=== PATIENT | male | born 2000 | race Hispanic/Latino ===

== ENCOUNTER 2022-09-22 15:48 | Inpatient (IN) | payer OTHER, BC ==
[~2022-09-22 15:48] MED LIST: Iopamidol-370 76% 500 ML 1 ML ONE
[2022-09-22] MEDS ORDERED: FENTANYL 50 MCG/ML 1 ML VIAL ONE ×2 (15:52→16:26)
[2022-09-22] MEDS ORDERED: Ondansetron PF 4 MG/2 ML Vial ONE ×2 (15:52→17:51)
[2022-09-22 16:16] LABS: Hemoglobin 16.1 g/dL (14.0-18.0); Mean Corpuscular Hemoglobin 27.1 pg (27.0-31.0); Mean Platelet Volume 9.4 fL (7.4-10.4); Platelet Count 270 thou/uL (130-400); RBC Distribution Width 13.3 % (11.5-14.5); Red Blood Cell (RBC) Count 5.94 mill/uL (4.70-6.10)
[2022-09-22 16:33] LABS: Band 19 % (5-11); Eosinophils 1 % (0-10); Lymphocytes 8 % (21-51); MDiff Complete? YES; Monocytes 4 % (0-10); Neutrophil 64 % (42-75); Platelet Morphology Comment Appears Adequate; RBC Morphology Normal; Reactive Lymphocytes 4 % (0-10)
[2022-09-22 16:37] LABS: INR-International Normal Ratio 1.1; Prothrombin Time 14.2 sec (12.0-14.7)
[2022-09-22 16:38] LABS: ALT (SGPT) 51 U/L (8-55); AST (SGOT) 53 U/L (5-34); Albumin 4.8 g/dL (3.5-5.0); Alcohol Less than 10 mg/dL (Less than 10); Alkaline Phosphatase 156 U/L (40-110); Anion Gap 15 mmol/L (10-20); BUN (Urea Nitrogen) 11 mg/dL (8.9-20.6); Calc. Creatinine Clearance 0 mL/min (70-130); Calcium 9.1 mg/dL (7.8-10.44); Carbon Dioxide 23 mmol/L (22-29); Chloride 109 mmol/L (98-107); Estimated GFR 91; Globulin 2.9 g/dL (2.4-3.5); Glucose 129 mg/dL (70-105); Potassium 3.7 mmol/L (3.5-5.1); Protein, Total 7.7 g/dL (6.0-8.3); Sodium 143 mmol/L (136-145)
[2022-09-22] MEDS ORDERED: Boostrix 0.5 ML (Tdap) VIAL (>/=7 yrs of age) ONE (17:03)
[2022-09-22] MEDS ORDERED: Piperacillin/Tazobactam 3.375 GM VIAL ONE (17:03)
[2022-09-22] MEDS ORDERED: fentaNYL PF 100 MCG/2 ML SYRINGE ONE ×2 (17:16→21:00)
[2022-09-22] MEDS ORDERED: Ondansetron PF 4 MG/2 ML Vial IVP PRN ×2 (17:20→17:26)
[2022-09-22] MEDS ORDERED: TETANUS, DIPHTHERIA TOX,ADULT (TDVAX) 0.5 ML VIAL IM ONE (17:20)
[2022-09-22] MEDS ORDERED: hydrALAZINE 20 MG/ML VIAL SLOW IVP PRN (17:20)
[2022-09-22] MEDS ORDERED: Naloxone HCl 0.4 mg/ml Vial IV PRN (17:26)
[2022-09-22] MEDS ORDERED: diphenhydrAMINE 25 MG CAP PO PRN (17:26)
[2022-09-22] MEDS ORDERED: Zolpidem Tartrate 5 MG TAB PO PRN (17:26)
[2022-09-22] MEDS ORDERED: diphenhydrAMINE 50 MG/ML VIAL IM PRN (17:26)
[2022-09-22] MEDS ORDERED: Promethazine HCl 25 MG/ML VIAL IM PRN ×2 (17:26→21:18)
[2022-09-22] MEDS ORDERED: HYDROmorphone 10 mg/100 ml CADD IVPB PRN (17:26)
[2022-09-22] MEDS ORDERED: Communication Order-Pharmacy FS SCH (17:30)
[2022-09-22] MEDS ORDERED: Morphine 4 MG/ML VIAL SLOW IVP PRN (17:32)
[2022-09-22] MEDS ORDERED: Phenylephrine 10 MG/ML VIAL ONE (17:36)
[2022-09-22] MEDS ORDERED: Rocuronium Bromide 10 MG/ML (10ML VIAL) ONE (17:51)
[2022-09-22] MEDS ORDERED: Dexamethasone 20 MG/5 ML VIAL ONE (17:51)
[2022-09-22] MEDS ORDERED: Ketorolac Tromethamine 30 MG/ML VIAL ONE (17:51)
[2022-09-22] MEDS ORDERED: PHENYLEPHRINE-NS 100 MCG/ML 10 ML SYRINGE ONE (17:51)
[2022-09-22] MEDS ORDERED: Succinylcholine 200 MG/10 ml SYRINGE FS ONE (17:51)
[2022-09-22] MEDS ORDERED: PROPOFOL 200 MG/20 ML VIAL ONE (17:51)
[2022-09-22] MEDS ORDERED: Glycopyrrolate 0.2 MG/ML 5 ML SYRINGE ONE (17:51)
[2022-09-22] MEDS ORDERED: NEOSTIGMINE 3 MG/3 ML SYR 3 MG/3 ML SYRINGE ONE (17:51)
[2022-09-22] MEDS ORDERED: Acetaminophen 500 MG TAB PO SCH (18:00)
[2022-09-22] MEDS ORDERED: Albumin 5% 500 ML ONE (18:47)
[2022-09-22] MEDS ORDERED: HYDROmorphone 2 MG/ML VIAL SLOW IVP PRN (21:18)
[2022-09-22] MEDS ORDERED: Promethazine HCl 25 MG/ML VIAL IVPB PRN (21:18)
[2022-09-22] MEDS ORDERED: Meperidine HCl/PF 25 MG/ML VIAL SLOW IVP PRN (21:18)
[2022-09-22] MEDS ORDERED: Morphine Sulfate 2 MG/ML SYRINGE SLOW IVP PRN (21:18)
[2022-09-22] MEDS ORDERED: Ondansetron HCl/PF 4 MG/2 ML Vial IVP PRN (21:18)
[2022-09-22] MEDS ORDERED: Ketorolac Tromethamine 30 MG/ML VIAL IVP PRN (21:18)
[2022-09-22] MEDS ORDERED: PACU-Morphine 4MG/ML VIAL SLOW IVP PRN (21:18)
[2022-09-22] MEDS ORDERED: Fentanyl 100 MCG/2 ML VIAL ONE (21:31)
[2022-09-22] MEDS: Sodium Chloride 0.9% 1,000 ML IV SCH (23:30)
[2022-09-22] MEDS: Famotidine/PF 20 mg/2ml Vial SLOW IVP SCH (23:40)
[2022-09-22] MEDS: Piperacillin/Tazobactam 3.375 GM in Sodium Chloride 0.9% 100 ML IVPB SCH (23:40)
[2022-09-23] MEDS: Sodium Chloride 0.9% 1,000 ML IV SCH ×3 (01:50→21:03)
[2022-09-23 05:06] VITALS: BMI 26.4
[2022-09-23 05:40] LABS: SARS-CoV-2 NAA Rapid Test Not Detected (NotDetected)
[2022-09-23] MEDS: Piperacillin/Tazobactam 3.375 GM in Sodium Chloride 0.9% 100 ML IVPB SCH ×3 (05:45→22:00)
[2022-09-23 05:56] LABS: INR-International Normal Ratio 1.2; PTT 31.3 sec (22.9-36.1); Prothrombin Time 15.6 sec (12.0-14.7)
[2022-09-23 06:11] LABS: Phosphorus 3.3 mg/dL (2.3-4.7)
[2022-09-23 06:13] LABS: Anion Gap 10 mmol/L (10-20); BUN (Urea Nitrogen) 11 mg/dL (8.9-20.6); Calc. Creatinine Clearance 145 mL/min (70-130); Calcium 8.2 mg/dL (7.8-10.44); Carbon Dioxide 22 mmol/L (22-29); Chloride 110 mmol/L (98-107); Estimated GFR 122; Glucose 140 mg/dL (70-105); Magnesium 1.5 mg/dL (1.6-2.6); Potassium 4.1 mmol/L (3.5-5.1); Sodium 138 mmol/L (136-145)
[2022-09-23 06:43] LABS: Band 40 % (5-11); Lymphocytes 4 % (21-51); MDiff Complete? YES; Mean Corpuscular HGB CONC 32.2 g/dL (32.0-36.0); Mean Corpuscular Hemoglobin 26.5 pg (27.0-31.0); Mean Corpuscular Volume 82.4 fl (78.0-98.0); Mean Platelet Volume 9.1 fL (7.4-10.4); Monocytes 11 % (0-10); Neutrophil 45 % (42-75); Platelet Count 161 thou/uL (130-400); RBC Distribution Width 13.1 % (11.5-14.5); Red Blood Cell (RBC) Count 4.54 mill/uL (4.70-6.10); White Blood Cell (WBC) Count 11.9 thou/uL (4.8-10.8)
[2022-09-23] MEDS ORDERED: Magnesium Sulfate In Water 4 GM in Premix Bag 1 BAG IVPB SCH (07:30)
[2022-09-23] MEDS ORDERED: HYDROmorphone 10 mg/100 ml CADD IVPB PRN (11:31)
[2022-09-23] MEDS ORDERED: Pantoprazole 40 MG VIAL IVP SCH (12:00)
[2022-09-23] MEDS ORDERED: Ketorolac Tromethamine 30 MG/ML VIAL IVP SCH (12:00)
[2022-09-23] MEDS: Famotidine/PF 20 mg/2ml Vial SLOW IVP SCH ×2 (13:24→21:03)
[2022-09-23] MEDS: Pantoprazole 40 MG VIAL IVP SCH (13:27)
[2022-09-23] MEDS ORDERED: FLU VACC QS2022-23(6MOS UP)/PF 60 MCG/0.5 ML SYRINGE IM ONE (14:00)
[2022-09-23] MEDS ORDERED: Ketorolac Tromethamine 30 MG/ML VIAL ONE (16:28)
[2022-09-23] MEDS: HYDROmorphone 10 mg/100 ml CADD IVPB PRN (16:38)
[2022-09-23] MEDS: diphenhydrAMINE 50 MG/ML VIAL IVP PRN (20:54)
[2022-09-23] MEDS: Ketorolac Tromethamine 30 MG/ML VIAL IVP SCH (21:03)
[2022-09-24] MEDS: diphenhydrAMINE 50 MG/ML VIAL IVP PRN (01:05)
[2022-09-24] MEDS: Sodium Chloride 0.9% 1,000 ML IV SCH ×4 (02:40→20:31)
[2022-09-24 05:58] LABS: #Eosinphils 0.1 thou/uL (0.0-0.7); #Lymphocytes 1.1 thou/uL (1.20-3.40); #Monocytes 0.7 thou/uL (0.11-0.59); #Neutrophils 7.5 thou/uL (1.40-6.50); %Basophils 0.2 % (0.0-1.0); %Eosinophils 0.8 % (0.0-10.0); %Lymphocytes 11.9 % (21.0-51.0); %Monocytes 7.6 % (0.0-10.0); %Neutrophils 79.4 % (42.0-75.0); Hemoglobin 11.1 g/dL (14.0-18.0); Mean Corpuscular HGB CONC 31.7 g/dL (32.0-36.0); Mean Corpuscular Hemoglobin 26.4 pg (27.0-31.0); Mean Corpuscular Volume 83.1 fl (78.0-98.0); Mean Platelet Volume 9.5 fL (7.4-10.4); Platelet Count 134 thou/uL (130-400); RBC Distribution Width 13.2 % (11.5-14.5); White Blood Cell (WBC) Count 9.4 thou/uL (4.8-10.8)
[2022-09-24] MEDS: Piperacillin/Tazobactam 3.375 GM in Sodium Chloride 0.9% 100 ML IVPB SCH ×3 (06:03→20:36)
[2022-09-24] MEDS: Ketorolac Tromethamine 30 MG/ML VIAL IVP SCH ×3 (06:03→20:33)
[2022-09-24 07:13] LABS: Anion Gap 11 mmol/L (10-20); BUN (Urea Nitrogen) 13 mg/dL (8.9-20.6); Calc. Creatinine Clearance 142 mL/min (70-130); Calcium 8.5 mg/dL (7.8-10.44); Carbon Dioxide 22 mmol/L (22-29); Chloride 109 mmol/L (98-107); Estimated GFR 119; Glucose 97 mg/dL (70-105); Magnesium 2.2 mg/dL (1.6-2.6); Phosphorus 2.1 mg/dL (2.3-4.7); Potassium 4.4 mmol/L (3.5-5.1); Sodium 138 mmol/L (136-145)
[2022-09-24] MEDS: Famotidine/PF 20 mg/2ml Vial SLOW IVP SCH ×2 (08:57→20:33)
[2022-09-24] MEDS: Pantoprazole 40 MG VIAL IVP SCH (08:58)
[2022-09-24] MEDS ORDERED: Sodium Phosphate 30 MMOL in Sodium Chloride 0.9% 250 ML 250 ML IVPB SCH (09:00)
[2022-09-24] MEDS ORDERED: FLU VACC QS2022-23(6MOS UP)/PF 60 MCG/0.5 ML SYRINGE IM ONE (09:00)
[2022-09-24] MEDS: Acetaminophen 500 MG TAB PO SCH ×3 (09:15→20:32)
[2022-09-24] MEDS: HYDROmorphone 10 mg/100 ml CADD IVPB PRN (10:37)
[2022-09-25] MEDS: Sodium Chloride 0.9% 1,000 ML IV SCH (02:30)
[2022-09-25] MEDS: Acetaminophen 500 MG TAB PO SCH ×4 (04:27→21:22)
[2022-09-25] MEDS: Ketorolac Tromethamine 30 MG/ML VIAL IVP SCH ×3 (05:55→21:21)
[2022-09-25] MEDS: Piperacillin/Tazobactam 3.375 GM in Sodium Chloride 0.9% 100 ML IVPB SCH ×3 (05:55→21:22)
[2022-09-25 06:10] LABS: #Basophils 0.1 thou/uL (0.0-0.2); #Eosinphils 0.1 thou/uL (0.0-0.7); #Lymphocytes 0.7 thou/uL (1.20-3.40); #Monocytes 0.5 thou/uL (0.11-0.59); %Basophils 1.2 % (0.0-1.0); %Eosinophils 1.6 % (0.0-10.0); %Lymphocytes 8.5 % (21.0-51.0); %Monocytes 5.7 % (0.0-10.0); Hemoglobin 10.4 g/dL (14.0-18.0); Mean Corpuscular HGB CONC 32.2 g/dL (32.0-36.0); Mean Corpuscular Hemoglobin 26.6 pg (27.0-31.0); Mean Corpuscular Volume 82.7 fl (78.0-98.0); Mean Platelet Volume 9.1 fL (7.4-10.4); Platelet Count 139 thou/uL (130-400); RBC Distribution Width 12.9 % (11.5-14.5); Red Blood Cell (RBC) Count 3.89 mill/uL (4.70-6.10); White Blood Cell (WBC) Count 8.4 thou/uL (4.8-10.8)
[2022-09-25 06:29] LABS: Anion Gap 12 mmol/L (10-20); BUN (Urea Nitrogen) 8 mg/dL (8.9-20.6); Calc. Creatinine Clearance 182 mL/min (70-130); Calcium 8.6 mg/dL (7.8-10.44); Carbon Dioxide 23 mmol/L (22-29); Chloride 108 mmol/L (98-107); Estimated GFR 131; Glucose 97 mg/dL (70-105); Magnesium 1.8 mg/dL (1.6-2.6); Potassium 3.6 mmol/L (3.5-5.1); Sodium 139 mmol/L (136-145)
[2022-09-25 06:35] LABS: Phosphorus 1.9 mg/dL (2.3-4.7)
[2022-09-25] MEDS ORDERED: Magnesium 2 GM/50 ML(in water) 2 GM in Premix Bag 1 BAG IVPB SCH (07:00)
[2022-09-25] MEDS ORDERED: Potassium Chloride 10 MEQ in Dextrose 5%-Lactated Ringers 1,000 ML IV SCH (07:00)
[2022-09-25] MEDS: HYDROmorphone 10 mg/100 ml CADD IVPB PRN ×2 (07:06→18:17)
[2022-09-25] MEDS ORDERED: Potassium Phosphate 30 MMOL in Sodium Chloride 0.9% 250 ML 250 ML IVPB SCH (07:30)
[2022-09-25] MEDS: Pantoprazole 40 MG VIAL IVP SCH (08:38)
[2022-09-25] MEDS: Potassium Chloride 10 MEQ in Dextrose 5%-Lactated Ringers 1,000 ML IV SCH ×3 (13:14→22:41)
[2022-09-25] MEDS: diphenhydrAMINE 50 MG/ML VIAL IVP PRN (21:21)
[2022-09-26] MEDS: diphenhydrAMINE 50 MG/ML VIAL IVP PRN ×2 (00:59→22:13)
[2022-09-26] MEDS: Acetaminophen 500 MG TAB PO SCH ×4 (02:48→20:05)
[2022-09-26 06:11] LABS: #Eosinphils 0.3 thou/uL (0.0-0.7); #Lymphocytes 1.3 thou/uL (1.20-3.40); #Monocytes 0.6 thou/uL (0.11-0.59); #Neutrophils 4.1 thou/uL (1.40-6.50); %Basophils 0.1 % (0.0-1.0); %Eosinophils 4.7 % (0.0-10.0); %Lymphocytes 21.2 % (21.0-51.0); %Monocytes 8.9 % (0.0-10.0); %Neutrophils 65.2 % (42.0-75.0); Hemoglobin 10.1 g/dL (14.0-18.0); Mean Corpuscular HGB CONC 31.8 g/dL (32.0-36.0); Mean Corpuscular Hemoglobin 26.2 pg (27.0-31.0); Mean Corpuscular Volume 82.3 fl (78.0-98.0); Mean Platelet Volume 10.1 fL (7.4-10.4); Platelet Count 112 thou/uL (130-400); RBC Distribution Width 12.8 % (11.5-14.5); Red Blood Cell (RBC) Count 3.86 mill/uL (4.70-6.10); White Blood Cell (WBC) Count 6.3 thou/uL (4.8-10.8)
[2022-09-26] MEDS: Piperacillin/Tazobactam 3.375 GM in Sodium Chloride 0.9% 100 ML IVPB SCH ×3 (06:19→22:11)
[2022-09-26] MEDS: Ketorolac Tromethamine 30 MG/ML VIAL IVP SCH (06:19)
[2022-09-26 06:29] LABS: Anion Gap 12 mmol/L (10-20); BUN (Urea Nitrogen) 4 mg/dL (8.9-20.6); Calc. Creatinine Clearance 187 mL/min (70-130); Calcium 8.8 mg/dL (7.8-10.44); Carbon Dioxide 20 mmol/L (22-29); Chloride 109 mmol/L (98-107); Estimated GFR 132; Glucose 100 mg/dL (70-105); Magnesium 1.6 mg/dL (1.6-2.6); Phosphorus 3.4 mg/dL (2.3-4.7); Potassium 3.9 mmol/L (3.5-5.1); Sodium 137 mmol/L (136-145)
[2022-09-26] MEDS: Potassium Chloride 10 MEQ in Dextrose 5%-Lactated Ringers 1,000 ML IV SCH (06:56)
[2022-09-26] MEDS ORDERED: Magnesium Sulfate In Water 4 GM in Premix Bag 1 BAG IVPB SCH (08:00)
[2022-09-26] MEDS: Enoxaparin Sodium 40 MG/0.4 ML SYRINGE SC SCH (08:51)
[2022-09-26] MEDS: Polyethylene Glycol 3350 17 GM Packet PO SCH (08:52)
[2022-09-26] MEDS: Senokot S 8.6-50 MG TAB PO SCH ×2 (08:52→20:05)
[2022-09-26] MEDS ORDERED: Ketorolac Tromethamine 30 MG/ML VIAL IVP PRN (10:37)
[2022-09-26] MEDS: HYDROmorphone 10 mg/100 ml CADD IVPB PRN (18:07)
[2022-09-26] MEDS: traMADol HCl 50 MG TAB PO SCH (18:08)
[2022-09-26] MEDS: traMADol HCl 50 MG TAB PO PRN (18:09)
[2022-09-27] MEDS: traMADol HCl 50 MG TAB PO SCH ×4 (00:08→18:12)
[2022-09-27] MEDS: Acetaminophen 500 MG TAB PO SCH ×4 (03:08→19:37)
[2022-09-27 05:46] LABS: #Eosinphils 0.4 thou/uL (0.0-0.7); #Lymphocytes 1.1 thou/uL (1.20-3.40); #Monocytes 0.6 thou/uL (0.11-0.59); #Neutrophils 4.4 thou/uL (1.40-6.50); %Basophils 0.3 % (0.0-1.0); %Eosinophils 5.5 % (0.0-10.0); %Lymphocytes 17.7 % (21.0-51.0); %Monocytes 8.9 % (0.0-10.0); %Neutrophils 67.6 % (42.0-75.0); Hemoglobin 9.8 g/dL (14.0-18.0); Mean Corpuscular HGB CONC 31.2 g/dL (32.0-36.0); Mean Corpuscular Hemoglobin 25.4 pg (27.0-31.0); Mean Corpuscular Volume 81.5 fl (78.0-98.0); Mean Platelet Volume 8.3 fL (7.4-10.4); Platelet Count 177 thou/uL (130-400); RBC Distribution Width 13.1 % (11.5-14.5); Red Blood Cell (RBC) Count 3.86 mill/uL (4.70-6.10); White Blood Cell (WBC) Count 6.4 thou/uL (4.8-10.8)
[2022-09-27] MEDS: Piperacillin/Tazobactam 3.375 GM in Sodium Chloride 0.9% 100 ML IVPB SCH ×3 (06:01→21:51)
[2022-09-27 06:33] LABS: Anion Gap 10 mmol/L (10-20); BUN (Urea Nitrogen) 5 mg/dL (8.9-20.6); Calc. Creatinine Clearance 182 mL/min (70-130); Calcium 8.9 mg/dL (7.8-10.44); Carbon Dioxide 27 mmol/L (22-29); Chloride 105 mmol/L (98-107); Estimated GFR 131; Glucose 94 mg/dL (70-105); Magnesium 1.8 mg/dL (1.6-2.6); Phosphorus 4.4 mg/dL (2.3-4.7); Potassium 3.7 mmol/L (3.5-5.1); Sodium 138 mmol/L (136-145)
[2022-09-27] MEDS: Enoxaparin Sodium 40 MG/0.4 ML SYRINGE SC SCH (09:07)
[2022-09-27] MEDS: Pantoprazole 40 MG VIAL IVP SCH (09:07)
[2022-09-27] MEDS: Senokot S 8.6-50 MG TAB PO SCH ×2 (09:07→19:37)
[2022-09-27] MEDS: Polyethylene Glycol 3350 17 GM Packet PO SCH (09:07)
[2022-09-28] MEDS: traMADol HCl 50 MG TAB PO SCH ×5 (00:16→23:42)
[2022-09-28] MEDS: traMADol HCl 50 MG TAB PO PRN ×2 (01:31→21:28)
[2022-09-28] MEDS: Cyclobenzaprine 10 MG TAB PO PRN ×2 (01:31→20:24)
[2022-09-28] MEDS: Ibuprofen 200 MG TAB PO PRN ×2 (01:31→21:27)
[2022-09-28] MEDS: Acetaminophen 500 MG TAB PO SCH ×4 (03:33→20:24)
[2022-09-28 05:58] LABS: #Eosinphils 0.3 thou/uL (0.0-0.7); #Lymphocytes 1.2 thou/uL (1.20-3.40); #Monocytes 0.7 thou/uL (0.11-0.59); #Neutrophils 6.6 thou/uL (1.40-6.50); %Eosinophils 3.2 % (0.0-10.0); %Lymphocytes 14.1 % (21.0-51.0); %Monocytes 7.4 % (0.0-10.0); %Neutrophils 75.3 % (42.0-75.0); Hemoglobin 11.3 g/dL (14.0-18.0); Mean Corpuscular HGB CONC 31.8 g/dL (32.0-36.0); Mean Corpuscular Hemoglobin 25.7 pg (27.0-31.0); Mean Corpuscular Volume 80.8 fl (78.0-98.0); Mean Platelet Volume 8.4 fL (7.4-10.4); Platelet Count 243 thou/uL (130-400); RBC Distribution Width 13.4 % (11.5-14.5); Red Blood Cell (RBC) Count 4.38 mill/uL (4.70-6.10); White Blood Cell (WBC) Count 8.8 thou/uL (4.8-10.8)
[2022-09-28 06:21] LABS: Anion Gap 11 mmol/L (10-20); BUN (Urea Nitrogen) 10 mg/dL (8.9-20.6); Calc. Creatinine Clearance 166 mL/min (70-130); Calcium 9.6 mg/dL (7.8-10.44); Carbon Dioxide 25 mmol/L (22-29); Chloride 105 mmol/L (98-107); Estimated GFR 127; Glucose 96 mg/dL (70-105); Phosphorus 4.2 mg/dL (2.3-4.7); Potassium 4.3 mmol/L (3.5-5.1); Sodium 137 mmol/L (136-145)
[2022-09-28] MEDS: Senokot S 8.6-50 MG TAB PO SCH ×2 (09:15→20:24)
[2022-09-28] MEDS: Enoxaparin Sodium 40 MG/0.4 ML SYRINGE SC SCH (09:15)
[2022-09-28] MEDS: Polyethylene Glycol 3350 17 GM Packet PO SCH (09:15)
[2022-09-28] MEDS: Pantoprazole 40 MG VIAL IVP SCH (09:16)
[2022-09-29] MEDS: Acetaminophen 500 MG TAB PO SCH ×5 (02:47→21:00)
[2022-09-29] MEDS: Cyclobenzaprine 10 MG TAB PO PRN (02:47)
[2022-09-29] MEDS: traMADol HCl 50 MG TAB PO PRN (04:25)
[2022-09-29] MEDS: Ibuprofen 200 MG TAB PO PRN (04:25)
[2022-09-29] MEDS: traMADol HCl 50 MG TAB PO SCH (05:41)
[2022-09-29] MEDS ORDERED: Morphine 4 MG/ML VIAL ONE (06:35)
[2022-09-29] MEDS ORDERED: Morphine 4 MG/ML VIAL SLOW IVP SCH ×2 (07:00→09:15)
[2022-09-29 07:58] LABS: Anion Gap 17 mmol/L (10-20); BUN (Urea Nitrogen) 11 mg/dL (8.9-20.6); Calc. Creatinine Clearance 154 mL/min (70-130); Calcium 9.3 mg/dL (7.8-10.44); Carbon Dioxide 19 mmol/L (22-29); Chloride 102 mmol/L (98-107); Estimated GFR 124; Glucose 122 mg/dL (70-105); Magnesium 1.5 mg/dL (1.6-2.6); Phosphorus 4.3 mg/dL (2.3-4.7); Potassium 4.4 mmol/L (3.5-5.1); Sodium 134 mmol/L (136-145)
[2022-09-29 08:09] LABS: Hemoglobin 12.6 g/dL (14.0-18.0); Mean Corpuscular HGB CONC 31.4 g/dL (32.0-36.0); Mean Corpuscular Hemoglobin 24.9 pg (27.0-31.0); Mean Corpuscular Volume 79.4 fl (78.0-98.0); Mean Platelet Volume 8.7 fL (7.4-10.4); Platelet Count 293 thou/uL (130-400); RBC Distribution Width 13.7 % (11.5-14.5); Red Blood Cell (RBC) Count 5.06 mill/uL (4.70-6.10); White Blood Cell (WBC) Count 17.7 thou/uL (4.8-10.8)
[2022-09-29] MEDS ORDERED: fentaNYL PF 100 MCG/2 ML SYRINGE ONE (08:14)
[2022-09-29] MEDS ORDERED: Ketamine 50 MG/ML (10ML VIAL) ONE (08:14)
[2022-09-29] MEDS ORDERED: Midazolam HCl 2 mg/2 ml Vial ONE ×2 (08:14)
[2022-09-29] MEDS ORDERED: Piperacillin/Tazobactam 3.375 GM in Sodium Chloride 0.9% 100 ML IVPB SCH ×2 (08:15→12:00)
[2022-09-29] MEDS ORDERED: Phenylephrine 10 MG/ML VIAL ONE (08:15)
[2022-09-29] MEDS ORDERED: Albumin 5% 500 ML ONE (08:15)
[2022-09-29] MEDS ORDERED: SUGAMMADEX SODIUM 200 MG/2 ML VIAL ONE (08:15)
[2022-09-29] MEDS ORDERED: HYDROmorphone 0.5 MG/0.5 ML SYRINGE ONE ×2 (08:16→11:34)
[2022-09-29] MEDS ORDERED: Morphine 4 MG/ML VIAL SLOW IVP PRN (08:22)
[2022-09-29] MEDS ORDERED: Sodium Chloride 0.9% 1,000 ML IV SCH (08:30)
[2022-09-29] MEDS ORDERED: Ketorolac Tromethamine 30 MG/ML VIAL IVP SCH (08:30)
[2022-09-29 08:35] LABS: Band 25 % (5-11); Lymphocytes 9 % (21-51); MDiff Complete? YES; Monocytes 9 % (0-10); Neutrophil 57 % (42-75); Ovalocytes SLIGHT = 2-5 cells (100X) (0-1/hpf); Platelet Morphology Comment Appears Adequate; Polychromasia SLIGHT = 2-3 cells (100X) (0-2/hpf)
[2022-09-29] MEDS ORDERED: Ketorolac Tromethamine 30 MG/ML VIAL ONE (08:44)
[2022-09-29] MEDS ORDERED: NEOSTIGMINE 3 MG/3 ML SYR 3 MG/3 ML SYRINGE ONE (09:09)
[2022-09-29] MEDS ORDERED: Rocuronium Bromide 10 MG/ML (10ML VIAL) ONE (09:09)
[2022-09-29] MEDS ORDERED: Glycopyrrolate 0.2 MG/ML 5 ML SYRINGE ONE (09:09)
[2022-09-29] MEDS ORDERED: PROPOFOL 200 MG/20 ML VIAL ONE (09:09)
[2022-09-29] MEDS ORDERED: Ondansetron PF 4 MG/2 ML Vial ONE (09:09)
[2022-09-29] MEDS ORDERED: PHENYLEPHRINE-NS 100 MCG/ML 10 ML SYRINGE ONE (09:09)
[2022-09-29] MEDS ORDERED: Succinylcholine 200 MG/10 ml SYRINGE FS ONE (09:09)
[2022-09-29] MEDS: Pantoprazole 40 MG VIAL IVP SCH (09:34)
[2022-09-29] MEDS: Enoxaparin Sodium 40 MG/0.4 ML SYRINGE SC SCH (09:34)
[2022-09-29] MEDS ORDERED: HYDROmorphone 2 MG/ML VIAL SLOW IVP PRN (11:11)
[2022-09-29] MEDS ORDERED: Promethazine HCl 25 MG/ML VIAL IM PRN ×2 (11:11→11:20)
[2022-09-29] MEDS ORDERED: Morphine Sulfate 2 MG/ML SYRINGE SLOW IVP PRN (11:11)
[2022-09-29] MEDS ORDERED: Promethazine HCl 25 MG/ML VIAL IVPB PRN (11:11)
[2022-09-29] MEDS ORDERED: Meperidine HCl/PF 25 MG/ML VIAL SLOW IVP PRN (11:11)
[2022-09-29] MEDS ORDERED: Ondansetron HCl/PF 4 MG/2 ML Vial IVP PRN (11:11)
[2022-09-29] MEDS ORDERED: diphenhydrAMINE 50 MG/ML VIAL IM PRN (11:20)
[2022-09-29] MEDS ORDERED: Zolpidem Tartrate 5 MG TAB PO PRN ×2 (11:20→13:00)
[2022-09-29] MEDS ORDERED: Ondansetron PF 4 MG/2 ML Vial IVP PRN (11:20)
[2022-09-29] MEDS ORDERED: HYDROmorphone 10 mg/100 ml CADD IVPB PRN (11:20)
[2022-09-29] MEDS ORDERED: Naloxone HCl 0.4 mg/ml Vial IV PRN ×2 (11:20→13:00)
[2022-09-29] MEDS ORDERED: diphenhydrAMINE 50 MG/ML VIAL IVP PRN (11:20)
[2022-09-29] MEDS ORDERED: diphenhydrAMINE 25 MG CAP PO PRN ×2 (11:20→13:00)
[2022-09-29] MEDS ORDERED: Communication Order-Pharmacy FS SCH (11:30)
[2022-09-29] MEDS ORDERED: FENTANYL 50 MCG/ML 1 ML VIAL ONE (11:48)
[2022-09-29] MEDS ORDERED: diphenhydrAMINE 50 MG/ML VIAL IM/IV PRN (13:00)
[2022-09-29] MEDS: Ketorolac Tromethamine 30 MG/ML VIAL IVP SCH ×2 (13:53→18:05)
[2022-09-29] MEDS: Sodium Chloride 0.9% 1,000 ML IV SCH ×2 (13:54→15:20)
[2022-09-29] MEDS: Piperacillin/Tazobactam 3.375 GM in Sodium Chloride 0.9% 100 ML IVPB SCH ×2 (14:16→21:01)
[2022-09-29] MEDS: Ondansetron PF 4 MG/2 ML Vial IVP PRN (18:41)
[2022-09-29] MEDS: Promethazine HCl 25 MG/ML VIAL IM PRN (20:21)
[2022-09-29] MEDS ORDERED: Piperacillin/Tazobactam 3.375 GM VIAL ONE (20:54)
[2022-09-30] MEDS: Ketorolac Tromethamine 30 MG/ML VIAL IVP SCH ×4 (00:01→16:53)
[2022-09-30] MEDS: Sodium Chloride 0.9% 1,000 ML IV SCH ×4 (00:02→17:16)
[2022-09-30] MEDS: Promethazine HCl 25 MG/ML VIAL IM PRN ×2 (00:07→17:45)
[2022-09-30] MEDS: Acetaminophen 500 MG TAB PO SCH ×4 (02:35→20:51)
[2022-09-30] MEDS: Piperacillin/Tazobactam 3.375 GM in Sodium Chloride 0.9% 100 ML IVPB SCH ×3 (05:06→20:50)
[2022-09-30 05:43] LABS: #Eosinphils 0.1 thou/uL (0.0-0.7); #Lymphocytes 0.8 thou/uL (1.20-3.40); #Monocytes 0.7 thou/uL (0.11-0.59); #Neutrophils 9.5 thou/uL (1.40-6.50); %Basophils 0.1 % (0.0-1.0); %Eosinophils 1.2 % (0.0-10.0); %Lymphocytes 7.4 % (21.0-51.0); %Monocytes 6.6 % (0.0-10.0); %Neutrophils 84.7 % (42.0-75.0); Hemoglobin 10.3 g/dL (14.0-18.0); Mean Corpuscular HGB CONC 31.6 g/dL (32.0-36.0); Mean Corpuscular Hemoglobin 25.5 pg (27.0-31.0); Mean Corpuscular Volume 80.7 fl (78.0-98.0); Mean Platelet Volume 8.5 fL (7.4-10.4); Platelet Count 287 thou/uL (130-400); RBC Distribution Width 13.7 % (11.5-14.5); Red Blood Cell (RBC) Count 4.06 mill/uL (4.70-6.10); White Blood Cell (WBC) Count 11.2 thou/uL (4.8-10.8)
[2022-09-30 05:59] LABS: ALT (SGPT) 22 U/L (8-55); AST (SGOT) 30 U/L (5-34); Alkaline Phosphatase 63 U/L (40-110); Anion Gap 10 mmol/L (10-20); BUN (Urea Nitrogen) 17 mg/dL (8.9-20.6); Bilirubin, Total 1.4 mg/dL (0.2-1.2); Calc. Creatinine Clearance 147 mL/min (70-130); Calcium 8.2 mg/dL (7.8-10.44); Carbon Dioxide 24 mmol/L (22-29); Chloride 103 mmol/L (98-107); Estimated GFR 123; Globulin 2.3 g/dL (2.4-3.5); Glucose 96 mg/dL (70-105); Potassium 4.1 mmol/L (3.5-5.1); Protein, Total 5.3 g/dL (6.0-8.3); Sodium 133 mmol/L (136-145)
[2022-09-30] MEDS: Ondansetron PF 4 MG/2 ML Vial IVP PRN (06:04)
[2022-09-30] MEDS: Fentanyl CADD 100 ML IVPB SCH (06:05)
[2022-09-30] MEDS ORDERED: Magnesium 2 GM/50 ML(in water) 4 GM in Premix Bag 1 BAG IVPB SCH (06:30)
[2022-09-30] MEDS ORDERED: Sodium Chloride 0.9% 1,000 ML IV SCH (06:45)
[2022-09-30] MEDS ORDERED: Morphine 4 MG/ML VIAL SLOW IVP SCH (07:00)
[2022-09-30] MEDS ORDERED: Ketorolac Tromethamine 30 MG/ML VIAL IVP SCH (07:00)
[2022-09-30] MEDS: Enoxaparin Sodium 40 MG/0.4 ML SYRINGE SC SCH (09:19)
[2022-09-30] MEDS: Pantoprazole 40 MG VIAL IVP SCH (09:20)
[2022-09-30] MEDS: Albumin 25% 25 GM/100 ML BOT IVPB SCH ×3 (10:06→20:49)
[2022-09-30 18:52] LABS: #Eosinphils 0.1 thou/uL (0.0-0.7); #Lymphocytes 0.7 thou/uL (1.20-3.40); #Monocytes 0.6 thou/uL (0.11-0.59); #Neutrophils 7.6 thou/uL (1.40-6.50); %Basophils 0.1 % (0.0-1.0); %Eosinophils 1.2 % (0.0-10.0); %Lymphocytes 8.2 % (21.0-51.0); %Monocytes 6.1 % (0.0-10.0); %Neutrophils 84.4 % (42.0-75.0); Hemoglobin 9.3 g/dL (14.0-18.0); Mean Corpuscular HGB CONC 32.2 g/dL (32.0-36.0); Mean Corpuscular Hemoglobin 26.4 pg (27.0-31.0); Mean Corpuscular Volume 81.8 fl (78.0-98.0); Mean Platelet Volume 8.4 fL (7.4-10.4); Platelet Count 284 thou/uL (130-400); RBC Distribution Width 13.5 % (11.5-14.5); Red Blood Cell (RBC) Count 3.54 mill/uL (4.70-6.10)
[2022-09-30 20:03] LABS: ALT (SGPT) 22 U/L (8-55); AST (SGOT) 41 U/L (5-34); Albumin 3.3 g/dL (3.5-5.0); Alkaline Phosphatase 61 U/L (40-110); Anion Gap 10 mmol/L (10-20); BUN (Urea Nitrogen) 11 mg/dL (8.9-20.6); Bilirubin, Total 1.4 mg/dL (0.2-1.2); Calc. Creatinine Clearance 166 mL/min (70-130); Calcium 8.5 mg/dL (7.8-10.44); Carbon Dioxide 23 mmol/L (22-29); Chloride 106 mmol/L (98-107); Estimated GFR 127; Globulin 2.4 g/dL (2.4-3.5); Glucose 86 mg/dL (70-105); Magnesium 2.2 mg/dL (1.6-2.6); Phosphorus 2.3 mg/dL (2.3-4.7); Potassium 4.2 mmol/L (3.5-5.1); Protein, Total 5.7 g/dL (6.0-8.3); Sodium 135 mmol/L (136-145)
[2022-09-30] MEDS: Senokot S 8.6-50 MG TAB PO SCH (20:51)
[2022-10-01] MEDS: Sodium Chloride 0.9% 1,000 ML IV SCH ×2 (03:05→09:14)
[2022-10-01] MEDS: Albumin 25% 25 GM/100 ML BOT IVPB SCH ×3 (03:30→17:33)
[2022-10-01] MEDS: Acetaminophen 500 MG TAB PO SCH ×4 (03:30→21:16)
[2022-10-01] MEDS: Ketorolac Tromethamine 30 MG/ML VIAL IVP SCH ×4 (05:37→17:33)
[2022-10-01] MEDS: Piperacillin/Tazobactam 3.375 GM in Sodium Chloride 0.9% 100 ML IVPB SCH ×3 (05:39→21:16)
[2022-10-01 07:13] LABS: #Eosinphils 0.1 thou/uL (0.0-0.7); #Lymphocytes 0.8 thou/uL (1.20-3.40); #Monocytes 0.6 thou/uL (0.11-0.59); #Neutrophils 5.2 thou/uL (1.40-6.50); %Basophils 0.2 % (0.0-1.0); %Eosinophils 1.3 % (0.0-10.0); %Neutrophils 77.5 % (42.0-75.0); Hemoglobin 8.1 g/dL (14.0-18.0); Mean Corpuscular HGB CONC 32.2 g/dL (32.0-36.0); Mean Corpuscular Hemoglobin 26.3 pg (27.0-31.0); Mean Corpuscular Volume 81.7 fl (78.0-98.0); Mean Platelet Volume 8.3 fL (7.4-10.4); Platelet Count 300 thou/uL (130-400); RBC Distribution Width 13.4 % (11.5-14.5); White Blood Cell (WBC) Count 6.7 thou/uL (4.8-10.8)
[2022-10-01 07:14] LABS: Phosphorus 2.4 mg/dL (2.3-4.7)
[2022-10-01 07:16] LABS: Anion Gap 14 mmol/L (10-20); BUN (Urea Nitrogen) 10 mg/dL (8.9-20.6); Calc. Creatinine Clearance 172 mL/min (70-130); Calcium 8.6 mg/dL (7.8-10.44); Carbon Dioxide 20 mmol/L (22-29); Chloride 108 mmol/L (98-107); Estimated GFR 129; Glucose 81 mg/dL (70-105); Potassium 4.1 mmol/L (3.5-5.1); Sodium 138 mmol/L (136-145)
[2022-10-01] MEDS: Pantoprazole 40 MG VIAL IVP SCH (08:19)
[2022-10-01] MEDS: Senokot S 8.6-50 MG TAB PO SCH (08:19)
[2022-10-01] MEDS: Enoxaparin Sodium 40 MG/0.4 ML SYRINGE SC SCH (08:20)
[2022-10-01] MEDS ORDERED: Sodium Chloride 0.9% 1,000 ML IV SCH (09:00)
[2022-10-01] MEDS ORDERED: Polyethylene Glycol 3350 17 GM Packet PO SCH (09:00)
[2022-10-01] MEDS ORDERED: Lactated Ringer's 1,000 ML IV SCH (10:45)
[2022-10-01] MEDS: Lactated Ringer's 1,000 ML IV SCH ×2 (11:20→17:34)
[2022-10-01] MEDS: Metoclopramide HCl 10 MG/2 ML VIAL IVP SCH ×2 (11:22→17:33)
[2022-10-01] MEDS: Fentanyl CADD 100 ML IVPB SCH ×2 (16:28)
[2022-10-02] MEDS: Ketorolac Tromethamine 30 MG/ML VIAL IVP SCH ×4 (00:05→16:50)
[2022-10-02] MEDS: Albumin 25% 25 GM/100 ML BOT IVPB SCH ×2 (00:06→06:01)
[2022-10-02] MEDS: Metoclopramide HCl 10 MG/2 ML VIAL IVP SCH ×3 (00:06→20:16)
[2022-10-02] MEDS: Lactated Ringer's 1,000 ML IV SCH ×4 (00:11→20:50)
[2022-10-02] MEDS: Acetaminophen 500 MG TAB PO SCH ×4 (03:26→20:57)
[2022-10-02] MEDS: Piperacillin/Tazobactam 3.375 GM in Sodium Chloride 0.9% 100 ML IVPB SCH ×3 (06:01→20:49)
[2022-10-02 06:09] LABS: #Eosinphils 0.2 thou/uL (0.0-0.7); #Monocytes 0.7 thou/uL (0.11-0.59); #Neutrophils 5.5 thou/uL (1.40-6.50); %Basophils 0.3 % (0.0-1.0); %Eosinophils 2.4 % (0.0-10.0); %Neutrophils 74.4 % (42.0-75.0); Mean Corpuscular HGB CONC 33.2 g/dL (32.0-36.0); Mean Corpuscular Hemoglobin 27.2 pg (27.0-31.0); Mean Corpuscular Volume 81.9 fl (78.0-98.0); Platelet Count 319 thou/uL (130-400); RBC Distribution Width 13.2 % (11.5-14.5); Red Blood Cell (RBC) Count 2.93 mill/uL (4.70-6.10); White Blood Cell (WBC) Count 7.4 thou/uL (4.8-10.8)
[2022-10-02 06:12] LABS: Phosphorus 2.3 mg/dL (2.3-4.7)
[2022-10-02 06:16] LABS: ALT (SGPT) 19 U/L (8-55); AST (SGOT) 28 U/L (5-34); Albumin 3.5 g/dL (3.5-5.0); Alkaline Phosphatase 60 U/L (40-110); Anion Gap 15 mmol/L (10-20); BUN (Urea Nitrogen) 6 mg/dL (8.9-20.6); Bilirubin, Total 1.5 mg/dL (0.2-1.2); Calc. Creatinine Clearance 198 mL/min (70-130); Calcium 8.9 mg/dL (7.8-10.44); Carbon Dioxide 17 mmol/L (22-29); Chloride 107 mmol/L (98-107); Estimated GFR 134; Globulin 2.2 g/dL (2.4-3.5); Glucose 80 mg/dL (70-105); Magnesium 1.6 mg/dL (1.6-2.6); Potassium 3.7 mmol/L (3.5-5.1); Protein, Total 5.7 g/dL (6.0-8.3); Sodium 135 mmol/L (136-145)
[2022-10-02] MEDS: Pantoprazole 40 MG VIAL IVP SCH (09:27)
[2022-10-02] MEDS: Enoxaparin Sodium 40 MG/0.4 ML SYRINGE SC SCH (09:27)
[2022-10-02] MEDS ORDERED: Magnesium 2 GM/50 ML(in water) 2 GM in Premix Bag 1 BAG IVPB SCH (10:45)
[2022-10-02] MEDS: Fentanyl CADD 100 ML IVPB SCH (12:03)
[2022-10-02] MEDS ORDERED: traMADol HCl 50 MG TAB PO PRN (14:09)
[2022-10-02] MEDS ORDERED: Acetaminophen 500 MG TAB PO SCH (14:15)
[2022-10-02] MEDS: Gabapentin 300 MG CAP PO SCH ×2 (16:51→20:50)
[2022-10-03] MEDS: Ketorolac Tromethamine 30 MG/ML VIAL IVP SCH ×2 (00:49→06:34)
[2022-10-03] MEDS: Fentanyl CADD 100 ML IVPB SCH (02:36)
[2022-10-03] MEDS: Acetaminophen 500 MG TAB PO SCH ×4 (02:40→20:32)
[2022-10-03 05:57] LABS: #Eosinphils 0.2 thou/uL (0.0-0.7); #Lymphocytes 0.9 thou/uL (1.20-3.40); #Monocytes 0.6 thou/uL (0.11-0.59); #Neutrophils 5.7 thou/uL (1.40-6.50); %Basophils 0.3 % (0.0-1.0); %Lymphocytes 11.9 % (21.0-51.0); %Monocytes 8.3 % (0.0-10.0); %Neutrophils 76.5 % (42.0-75.0); Hemoglobin 8.1 g/dL (14.0-18.0); Mean Corpuscular HGB CONC 33.3 g/dL (32.0-36.0); Mean Corpuscular Hemoglobin 26.8 pg (27.0-31.0); Mean Corpuscular Volume 80.7 fl (78.0-98.0); Mean Platelet Volume 7.8 fL (7.4-10.4); Platelet Count 387 thou/uL (130-400); RBC Distribution Width 13.2 % (11.5-14.5); Red Blood Cell (RBC) Count 3.03 mill/uL (4.70-6.10); White Blood Cell (WBC) Count 7.4 thou/uL (4.8-10.8)
[2022-10-03 06:31] LABS: Anion Gap 15 mmol/L (10-20); BUN (Urea Nitrogen) 4 mg/dL (8.9-20.6); Calc. Creatinine Clearance 195 mL/min (70-130); Calcium 9.2 mg/dL (7.8-10.44); Carbon Dioxide 22 mmol/L (22-29); Chloride 103 mmol/L (98-107); Estimated GFR 134; Glucose 89 mg/dL (70-105); Magnesium 1.7 mg/dL (1.6-2.6); Phosphorus 3.4 mg/dL (2.3-4.7); Potassium 3.2 mmol/L (3.5-5.1); Sodium 137 mmol/L (136-145)
[2022-10-03] MEDS: Piperacillin/Tazobactam 3.375 GM in Sodium Chloride 0.9% 100 ML IVPB SCH ×3 (06:35→21:42)
[2022-10-03] MEDS: Lactated Ringer's 1,000 ML IV SCH ×2 (07:17→18:27)
[2022-10-03] MEDS ORDERED: Morphine 2 MG/ML VIAL SLOW IVP PRN (07:19)
[2022-10-03] MEDS ORDERED: Potassium Chloride 20 MEQ TAB PO SCH (08:15)
[2022-10-03] MEDS ORDERED: Potassium Phosphate 30 MMOL in Sodium Chloride 0.9% 250 ML 250 ML IVPB SCH (08:30)
[2022-10-03] MEDS ORDERED: Magnesium Sulfate In Water 4 GM in Premix Bag 1 BAG IVPB SCH (08:30)
[2022-10-03] MEDS: Enoxaparin Sodium 40 MG/0.4 ML SYRINGE SC SCH (09:30)
[2022-10-03] MEDS: Gabapentin 300 MG CAP PO SCH ×3 (09:33→20:32)
[2022-10-03] MEDS: traMADol HCl 50 MG TAB PO SCH ×3 (09:35→20:33)
[2022-10-03] MEDS: Pantoprazole 40 MG VIAL IVP SCH (09:38)
[2022-10-03] MEDS: Ondansetron PF 4 MG/2 ML Vial IVP PRN (12:44)
[2022-10-03] MEDS: Ibuprofen 600 MG TAB PO PRN (14:41)
[2022-10-03] MEDS ORDERED: Magnesium 2 GM/50 ML(in water) 4 GM in Premix Bag 1 BAG IVPB SCH (15:15)
[2022-10-03 16:10] LABS: #Eosinphils 0.1 thou/uL (0.0-0.7); #Lymphocytes 0.5 thou/uL (1.20-3.40); #Monocytes 0.6 thou/uL (0.11-0.59); #Neutrophils 8.4 thou/uL (1.40-6.50); %Basophils 0.1 % (0.0-1.0); %Eosinophils 0.7 % (0.0-10.0); %Lymphocytes 5.4 % (21.0-51.0); %Neutrophils 87.7 % (42.0-75.0); Hemoglobin 8.4 g/dL (14.0-18.0); Mean Corpuscular HGB CONC 33.1 g/dL (32.0-36.0); Mean Corpuscular Volume 78.6 fl (78.0-98.0); Mean Platelet Volume 7.8 fL (7.4-10.4); Platelet Count 425 thou/uL (130-400); RBC Distribution Width 13.4 % (11.5-14.5); Red Blood Cell (RBC) Count 3.22 mill/uL (4.70-6.10); White Blood Cell (WBC) Count 9.6 thou/uL (4.8-10.8)
[2022-10-03 17:46] LABS: Hemoglobin 8.1 g/dL (14.0-18.0); Mean Corpuscular HGB CONC 33.7 g/dL (32.0-36.0); Mean Corpuscular Hemoglobin 26.4 pg (27.0-31.0); Mean Corpuscular Volume 78.4 fl (78.0-98.0); Mean Platelet Volume 7.7 fL (7.4-10.4); Platelet Count 431 thou/uL (130-400); RBC Distribution Width 13.2 % (11.5-14.5); Red Blood Cell (RBC) Count 3.07 mill/uL (4.70-6.10); White Blood Cell (WBC) Count 10.1 thou/uL (4.8-10.8)
[2022-10-03 18:20] LABS: Band 18 % (5-11); Hypochromia SLIGHT = 6-15 cells (100X) (0-5/hpf); Lymphocytes 5 % (21-51); MDiff Complete? YES; Monocytes 3 % (0-10); Neutrophil 74 % (42-75); Nucleated RBC 1 % (0); Platelet Morphology Comment Appears Increased; Polychromasia SLIGHT = 2-3 cells (100X) (0-2/hpf); Stomatocytes SLIGHT = 2-5 cells (100X) (0-1/hpf)
[2022-10-03 18:20] LABS: Bacteria/HPF None Seen HPF (None Seen); Bilirubin Negative (Negative); Blood, Urine Negative (Negative); Clarity Clear (Clear); Glucose, Urine (Dipstick) Normal (Negative); Ketone, Urine 100 mg/dL (Negative); Leukocyte Negative Leu/uL (Negative); Nitrite Negative (Negative); Protein, Urine (Dipstick) 20 mg/dL (Neg-Trace); RBC/HPF 0-3 HPF (0-3); Specific Gravity, Urine 1.014 (1.002-1.036); Squamous Epithelial None Seen HPF (0-3); Urobilinogen Normal mg/dL (Less than 2); WBC/HPF 0-3 HPF (0-3)
[2022-10-03 18:26] LABS: Urine Culture Reflex No No
[2022-10-03] MEDS: Morphine 4 MG/ML VIAL SLOW IVP PRN (18:40)
[2022-10-04] MEDS: Acetaminophen 500 MG TAB PO SCH ×4 (03:20→19:29)
[2022-10-04] MEDS: Lactated Ringer's 1,000 ML IV SCH ×3 (03:20→21:21)
[2022-10-04] MEDS: traMADol HCl 50 MG TAB PO SCH ×4 (03:20→19:30)
[2022-10-04] MEDS: Piperacillin/Tazobactam 3.375 GM in Sodium Chloride 0.9% 100 ML IVPB SCH ×2 (05:32→14:01)
[2022-10-04 06:31] LABS: #Eosinphils 0.2 thou/uL (0.0-0.7); #Lymphocytes 0.8 thou/uL (1.20-3.40); #Monocytes 0.9 thou/uL (0.11-0.59); #Neutrophils 8.8 thou/uL (1.40-6.50); %Eosinophils 1.4 % (0.0-10.0); %Lymphocytes 7.9 % (21.0-51.0); %Monocytes 8.1 % (0.0-10.0); %Neutrophils 82.6 % (42.0-75.0); Hemoglobin 7.9 g/dL (14.0-18.0); Mean Corpuscular HGB CONC 32.5 g/dL (32.0-36.0); Mean Corpuscular Hemoglobin 26.1 pg (27.0-31.0); Mean Corpuscular Volume 80.2 fl (78.0-98.0); Mean Platelet Volume 7.9 fL (7.4-10.4); Platelet Count 456 thou/uL (130-400); RBC Distribution Width 13.7 % (11.5-14.5); Red Blood Cell (RBC) Count 3.03 mill/uL (4.70-6.10); White Blood Cell (WBC) Count 10.6 thou/uL (4.8-10.8)
[2022-10-04 06:53] LABS: Anion Gap 13 mmol/L (10-20); BUN (Urea Nitrogen) 5 mg/dL (8.9-20.6); Calc. Creatinine Clearance 201 mL/min (70-130); Calcium 8.9 mg/dL (7.8-10.44); Carbon Dioxide 23 mmol/L (22-29); Chloride 104 mmol/L (98-107); Estimated GFR 135; Glucose 83 mg/dL (70-105); Phosphorus 3.2 mg/dL (2.3-4.7); Sodium 136 mmol/L (136-145)
[2022-10-04] MEDS: Enoxaparin Sodium 40 MG/0.4 ML SYRINGE SC SCH (08:20)
[2022-10-04] MEDS: Pantoprazole 40 MG VIAL IVP SCH (08:20)
[2022-10-04] MEDS: Gabapentin 300 MG CAP PO SCH ×3 (08:21→19:30)
[2022-10-04] MEDS: Ibuprofen 600 MG TAB PO PRN ×2 (15:12→21:19)
[2022-10-04] MEDS: Morphine 4 MG/ML VIAL SLOW IVP PRN ×2 (18:40→22:54)
[2022-10-04] MEDS: Ondansetron PF 4 MG/2 ML Vial IVP PRN (21:20)
[2022-10-05] MEDS: Acetaminophen 500 MG TAB PO SCH ×4 (01:39→20:19)
[2022-10-05] MEDS: traMADol HCl 50 MG TAB PO SCH ×4 (01:39→20:18)
[2022-10-05] MEDS: Piperacillin/Tazobactam 3.375 GM in Sodium Chloride 0.9% 100 ML IVPB SCH ×3 (01:39→18:22)
[2022-10-05 06:29] LABS: #Eosinphils 0.2 thou/uL (0.0-0.7); #Lymphocytes 1.1 thou/uL (1.20-3.40); #Monocytes 1.2 thou/uL (0.11-0.59); #Neutrophils 6.7 thou/uL (1.40-6.50); %Basophils 0.2 % (0.0-1.0); %Eosinophils 2.4 % (0.0-10.0); %Monocytes 12.6 % (0.0-10.0); %Neutrophils 72.8 % (42.0-75.0); Hemoglobin 7.7 g/dL (14.0-18.0); Mean Corpuscular HGB CONC 32.6 g/dL (32.0-36.0); Mean Corpuscular Hemoglobin 26.5 pg (27.0-31.0); Mean Corpuscular Volume 81.3 fl (78.0-98.0); Platelet Count 511 thou/uL (130-400); RBC Distribution Width 13.6 % (11.5-14.5); White Blood Cell (WBC) Count 9.3 thou/uL (4.8-10.8)
[2022-10-05 06:48] LABS: Anion Gap 13 mmol/L (10-20); BUN (Urea Nitrogen) 6 mg/dL (8.9-20.6); Calc. Creatinine Clearance 208 mL/min (70-130); Calcium 9.1 mg/dL (7.8-10.44); Carbon Dioxide 23 mmol/L (22-29); Chloride 105 mmol/L (98-107); Estimated GFR 136; Glucose 94 mg/dL (70-105); Magnesium 1.8 mg/dL (1.6-2.6); Phosphorus 3.8 mg/dL (2.3-4.7); Potassium 3.7 mmol/L (3.5-5.1); Sodium 137 mmol/L (136-145)
[2022-10-05] MEDS: Gabapentin 300 MG CAP PO SCH ×3 (07:39→20:19)
[2022-10-05] MEDS: Ascorbic Acid 500 mg Chewable Tablet PO SCH ×2 (07:39→20:17)
[2022-10-05] MEDS: Ferrous Sulfate 325 MG TAB PO SCH ×2 (07:39→17:00)
[2022-10-05] MEDS: Enoxaparin Sodium 40 MG/0.4 ML SYRINGE SC SCH (07:40)
[2022-10-05] MEDS: Pantoprazole 40 MG VIAL IVP SCH (07:40)
[2022-10-05] MEDS: Lactated Ringer's 1,000 ML IV SCH (07:43)
[2022-10-05] MEDS ORDERED: Iopamidol-370 76% 500 ML 1 ML ONE (08:31)
[2022-10-05] MEDS: Ibuprofen 600 MG TAB PO PRN (17:28)
[2022-10-05] MEDS: Morphine 4 MG/ML VIAL SLOW IVP PRN (17:29)
[2022-10-06] MEDS: traMADol HCl 50 MG TAB PO SCH ×4 (02:38→20:45)
[2022-10-06] MEDS: Piperacillin/Tazobactam 3.375 GM in Sodium Chloride 0.9% 100 ML IVPB SCH ×3 (02:38→17:36)
[2022-10-06] MEDS: Acetaminophen 500 MG TAB PO SCH ×4 (02:39→20:45)
[2022-10-06 06:00] LABS: #Eosinphils 0.4 thou/uL (0.0-0.7); #Lymphocytes 1.3 thou/uL (1.20-3.40); #Neutrophils 6.3 thou/uL (1.40-6.50); %Basophils 0.2 % (0.0-1.0); %Lymphocytes 14.6 % (21.0-51.0); %Monocytes 10.9 % (0.0-10.0); %Neutrophils 70.3 % (42.0-75.0); Hemoglobin 7.9 g/dL (14.0-18.0); Mean Corpuscular Volume 81.1 fl (78.0-98.0); Mean Platelet Volume 7.7 fL (7.4-10.4); Platelet Count 607 thou/uL (130-400); RBC Distribution Width 13.7 % (11.5-14.5); Red Blood Cell (RBC) Count 3.04 mill/uL (4.70-6.10); White Blood Cell (WBC) Count 8.9 thou/uL (4.8-10.8)
[2022-10-06 06:11] LABS: INR-International Normal Ratio 1.1; PTT 42.2 sec (22.9-36.1); Prothrombin Time 14.6 sec (12.0-14.7)
[2022-10-06] MEDS: Ascorbic Acid 500 mg Chewable Tablet PO SCH ×2 (08:52→20:45)
[2022-10-06] MEDS: Ferrous Sulfate 325 MG TAB PO SCH ×2 (08:52→16:07)
[2022-10-06] MEDS: Gabapentin 300 MG CAP PO SCH ×3 (08:53→20:45)
[2022-10-06] MEDS: Pantoprazole 40 MG VIAL IVP SCH (08:54)
[2022-10-06] MEDS: Morphine 4 MG/ML VIAL SLOW IVP PRN ×2 (11:18→22:08)
[2022-10-06] MEDS: Ibuprofen 600 MG TAB PO PRN (16:07)
[2022-10-07] MEDS: Piperacillin/Tazobactam 3.375 GM in Sodium Chloride 0.9% 100 ML IVPB SCH (02:58)
[2022-10-07] MEDS: Acetaminophen 500 MG TAB PO SCH ×4 (03:00→19:54)
[2022-10-07] MEDS: traMADol HCl 50 MG TAB PO SCH ×4 (03:00→19:55)
[2022-10-07] MEDS: Ascorbic Acid 500 mg Chewable Tablet PO SCH ×2 (08:37→19:55)
[2022-10-07] MEDS: Ferrous Sulfate 325 MG TAB PO SCH ×2 (08:38→15:59)
[2022-10-07] MEDS: Gabapentin 300 MG CAP PO SCH ×3 (08:38→19:55)
[2022-10-07] MEDS: Amoxicillin/Potassium Clav 875 MG TAB PO SCH ×2 (08:44→19:54)
[2022-10-07] MEDS ORDERED: Piperacillin/Tazobactam 3.375 GM in Sodium Chloride 0.9% 100 ML IVPB SCH (10:00)
[2022-10-07] MEDS: Enoxaparin Sodium 40 MG/0.4 ML SYRINGE SC SCH (10:54)
[2022-10-07] MEDS: Morphine 4 MG/ML VIAL SLOW IVP PRN (11:47)
[2022-10-07] MEDS: Ibuprofen 600 MG TAB PO PRN (19:54)
[2022-10-08] MEDS: Acetaminophen 500 MG TAB PO SCH ×3 (03:33→15:09)
[2022-10-08] MEDS: traMADol HCl 50 MG TAB PO SCH ×3 (03:33→15:09)
[2022-10-08] MEDS: Promethazine HCl 25 MG/ML VIAL IM PRN (04:17)
[2022-10-08] MEDS: Ibuprofen 600 MG TAB PO PRN (04:17)
[2022-10-08 06:29] LABS: #Eosinphils 0.4 thou/uL (0.0-0.7); #Lymphocytes 1.5 thou/uL (1.20-3.40); #Neutrophils 9.2 thou/uL (1.40-6.50); %Basophils 0.3 % (0.0-1.0); %Eosinophils 3.4 % (0.0-10.0); %Lymphocytes 12.3 % (21.0-51.0); %Monocytes 7.9 % (0.0-10.0); %Neutrophils 76.1 % (42.0-75.0); Hemoglobin 9.3 g/dL (14.0-18.0); Mean Corpuscular HGB CONC 31.8 g/dL (32.0-36.0); Mean Corpuscular Hemoglobin 25.6 pg (27.0-31.0); Mean Corpuscular Volume 80.6 fl (78.0-98.0); Mean Platelet Volume 7.5 fL (7.4-10.4); Platelet Count 757 10x3/uL (130-400); RBC Distribution Width 14.1 % (11.5-14.5); Red Blood Cell (RBC) Count 3.61 mill/uL (4.70-6.10); White Blood Cell (WBC) Count 12.1 10x3/uL (4.8-10.8)
[2022-10-08] MEDS: Enoxaparin Sodium 40 MG/0.4 ML SYRINGE SC SCH (08:34)
[2022-10-08] MEDS: Gabapentin 300 MG CAP PO SCH ×2 (08:35→15:09)
[2022-10-08] MEDS: Ferrous Sulfate 325 MG TAB PO SCH ×2 (08:36→17:27)
[2022-10-08] MEDS: Amoxicillin/Potassium Clav 875 MG TAB PO SCH (08:36)
[2022-10-08] MEDS: Ascorbic Acid 500 mg Chewable Tablet PO SCH (08:36)
[2022-10-08 16:10] VITALS: BP 116/73; TEMP 98.1
== END 2022-10-08 17:34 | disposition home or self-care (01) | DRG 957 ==
LOC: ERS 15:48 → SDC 17:43 → SURG A 23:26
PROVIDERS: ADMIT Surgery; ATTEND Surgery
PROC: 0DBN0ZZ Excision of Sigmoid Colon, Open Approach (ICD-10-PCS; principal; 2022-09-22)
PROC: 0DB80ZZ Excision of Small Intestine, Open Approach (ICD-10-PCS; 2022-09-22)
PROC: 0DC60ZZ Extirpation of Matter from Stomach, Open Approach (ICD-10-PCS; 2022-09-22)
PROC: 0DQA0ZZ Repair Jejunum, Open Approach (ICD-10-PCS; 2022-09-22)
PROC: 0DHA7UZ Insertion of Feeding Device into Jejunum, Via Natural or Artificial Opening (ICD-10-PCS; 2022-09-22)
PROC: 3E0H76Z Introduction of Nutritional Substance into Lower GI, Via Natural or Artificial Opening (ICD-10-PCS; 2022-09-22)
PROC: 0DJD0ZZ Inspection of Lower Intestinal Tract, Open Approach (ICD-10-PCS; 2022-09-29)
PROC: 05HY33Z Insertion of Infusion Device into Upper Vein, Percutaneous Approach (ICD-10-PCS; 2022-09-29)
DX: S36.533A Laceration of sigmoid colon, initial encounter (principal); K65.9 Peritonitis, unspecified; S27.0XXA Traumatic pneumothorax, initial encounter; D62 Acute posthemorrhagic anemia; K56.7 Ileus, unspecified; K91.89 Other postprocedural complications and disorders of digestive system; S22.089A Unspecified fracture of T11-T12 vertebra, initial encounter for closed fracture; S32.031A Stable burst fracture of third lumbar vertebra, initial encounter for closed fracture; T81.41XA Infection following a procedure, superficial incisional surgical site, initial encounter; K91.872 Postprocedural seroma of a digestive system organ or structure following a digestive system procedure; K55.9 Vascular disorder of intestine, unspecified; S36.438A Laceration of other part of small intestine, initial encounter; R18.8 Other ascites; F17.210 Nicotine dependence, cigarettes, uncomplicated; Z20.822 Contact with and (suspected) exposure to COVID-19; E83.42 Hypomagnesemia; E83.41 Hypermagnesemia; R50.9 Fever, unspecified; D75.839 Thrombocytosis, unspecified; Y83.8 Other surgical procedures as the cause of abnormal reaction of the patient, or of later complication, without mention of misadventure at the time of the procedure; S42.002A Fracture of unspecified part of left clavicle, initial encounter for closed fracture; V53.5XXA Driver of pick-up truck or van injured in collision with car, pick-up truck or van in traffic accident, initial encounter; Y92.410 Unspecified street and highway as the place of occurrence of the external cause
CPT/HCPCS: 36415; 70450; 71045; 71260; 72125; 72148; 72170; 74018; 74177; 80048; 80053; 80307; 81001; 83605; 83690; 83735; 84100; 84145; 84146; 85025; 85610; 85730; 86850; 86900; 86901; 87040; 88307; 90471; 90686; 90715; 90732; 93970; 96374; 96375; 96376; 97139; A4649; C1713; C1751; C1776; C9113; G0008; G0009; G0390; J1100; J1170; J1200; J1650; J1885; J2250; J2270; J2370; J2405; J2543; J2550; J2704; J2765; J3010; J3475; J3480; J3490; J7050; J7120; P9045; P9047; Q9967; S0028; U0002

== ENCOUNTER 2022-12-04 13:48 | Outpatient (CLI) | payer BC | END 2022-12-04 13:49 | disposition home or self-care (01) | LOC: TBSIIMAG 13:48 | PROVIDERS: ATTEND Neurological Surgery | DX: M89.8X1 Other specified disorders of bone, shoulder (principal); M48.56XD Collapsed vertebra, not elsewhere classified, lumbar region, subsequent encounter for fracture with routine healing; S42.002D Fracture of unspecified part of left clavicle, subsequent encounter for fracture with routine healing | CPT/HCPCS: 72100 ==

== ENCOUNTER 2023-01-13 14:53 | Outpatient (CLI) | payer BC | END 2023-01-13 14:54 | disposition home or self-care (01) | LOC: RAD 14:53 | PROVIDERS: ATTEND Neurological Surgery | DX: S22.009A Unspecified fracture of unspecified thoracic vertebra, initial encounter for closed fracture (principal) | CPT/HCPCS: 72072 ==

== ENCOUNTER 2023-01-20 12:59 | Outpatient (CLI) | payer BC | END 2023-01-20 13:00 | disposition home or self-care (01) | LOC: TBSIIMAG 12:59 | PROVIDERS: ATTEND Neurological Surgery | DX: M54.50 Low back pain, unspecified (principal); S32.031D Stable burst fracture of third lumbar vertebra, subsequent encounter for fracture with routine healing | CPT/HCPCS: 72100 ==

== ENCOUNTER 2023-07-08 16:41 | Inpatient (IN) | payer BC, SELFPAY ==
[2023-07-08] MEDS ORDERED: Morphine 4 MG/ML VIAL ONE (17:37)
[2023-07-08] MEDS ORDERED: Ondansetron PF 4 MG/2 ML Vial ONE (17:37)
[2023-07-08 18:07] LABS: #Eosinphils 0.1 thou/uL (0.0-0.7); #Monocytes 0.7 thou/uL (0.11-0.59); #Neutrophils 6.6 thou/uL (1.40-6.50); %Basophils 0.2 % (0.0-1.0); %Eosinophils 0.9 % (0.0-10.0); %Lymphocytes 14.6 % (21.0-51.0); %Monocytes 7.7 % (0.0-10.0); %Neutrophils 76.3 % (42.0-75.0); Hemoglobin 14.9 g/dL (14.0-18.0); Mean Corpuscular HGB CONC 32.4 g/dL (32.0-36.0); Mean Corpuscular Hemoglobin 25.1 pg (27.0-31.0); Mean Corpuscular Volume 77.4 fl (78.0-98.0); Mean Platelet Volume 11.6 fL (7.4-10.4); Platelet Count 333 10x3/uL (130-400); RBC Distribution Width 14.6 % (11.5-14.5); Red Blood Cell (RBC) Count 5.94 mill/uL (4.70-6.10); White Blood Cell (WBC) Count 8.7 10x3/uL (4.8-10.8)
[2023-07-08 18:41] LABS: ALT (SGPT) 67 U/L (8-55); AST (SGOT) 30 U/L (5-34); Albumin 4.5 g/dL (3.5-5.0); Alkaline Phosphatase 110 U/L (40-110); Anion Gap 14 mmol/L (10-20); BUN (Urea Nitrogen) 10 mg/dL (8.9-20.6); Calc. Creatinine Clearance 0 mL/min (70-130); Calcium 9.4 mg/dL (7.8-10.44); Carbon Dioxide 27 mmol/L (22-29); Chloride 105 mmol/L (98-107); Estimated GFR 126; Globulin 2.7 g/dL (2.4-3.5); Glucose 92 mg/dL (70-105); Lipase 10 U/L (8-78); Potassium 3.7 mmol/L (3.5-5.1); Protein, Total 7.2 g/dL (6.0-8.3); Sodium 142 mmol/L (136-145)
[2023-07-08 18:59] LABS: Bacteria/HPF None Seen HPF (None Seen); Bilirubin Negative (Negative); Blood, Urine Negative (Negative); CAUTI Indications for Culture Pelvic or flank pain; Clarity Clear (Clear); Glucose, Urine (Dipstick) Normal (Negative); Ketone, Urine Negative (Negative); Leukocyte Negative Leu/uL (Negative); Nitrite Negative (Negative); Protein, Urine (Dipstick) 10 mg/dL (Neg-Trace); RBC/HPF 0-3 HPF (0-3); Specific Gravity, Urine 1.021 (1.002-1.036); Squamous Epithelial None Seen HPF (0-3); Urobilinogen Normal mg/dL (Less than 2); WBC/HPF 0-3 HPF (0-3); pH, Urine 6.5 (5.0-9.0)
[2023-07-08 19:01] LABS: Urine Culture Reflex No No
[2023-07-08] MEDS ORDERED: Ketorolac Tromethamine 30 MG/ML VIAL ONE (19:06)
[2023-07-08] MEDS ORDERED: Morphine 4 MG/ML VIAL SLOW IVP PRN (20:01)
[2023-07-08] MEDS ORDERED: Benzocaine 20% Spray 60 ML CAN ONE (20:02)
[2023-07-08] MEDS ORDERED: Ondansetron ODT 4 MG TAB SL PRN (20:15)
[2023-07-08] MEDS ORDERED: Ondansetron PF 4 MG/2 ML Vial IVP PRN (20:15)
[2023-07-08 22:36] VITALS: BMI 23.3
[2023-07-08] MEDS: Ketorolac Tromethamine 30 MG/ML VIAL IVP PRN (22:46)
[2023-07-08] MEDS: Sodium Chloride 0.9% 1,000 ML IV SCH (22:48)
[2023-07-09] MEDS: Ketorolac Tromethamine 30 MG/ML VIAL IVP PRN (05:39)
[2023-07-09] MEDS: Sodium Chloride 0.9% 1,000 ML IV SCH (05:43)
[2023-07-09] MEDS ORDERED: Ipratropium/Albuterol 3 ML NEB NEB PRN (08:17)
[2023-07-09] MEDS ORDERED: Dextrose 5% in Water 1,000 ML IV PRN (08:17)
[2023-07-09] MEDS ORDERED: Glucagon 1 MG/ML KIT IM PRN (08:17)
[2023-07-09] MEDS ORDERED: Dextrose 50% Abboject 50 ML SYRINGE SLOW IVP PRN (08:17)
[2023-07-09] MEDS ORDERED: Ketorolac Tromethamine 30 MG/ML VIAL IVP PRN (08:18)
[2023-07-09] MEDS ORDERED: Morphine 4 MG/ML VIAL SLOW IVP PRN (08:18)
[2023-07-09] MEDS ORDERED: Ondansetron ODT 4 MG TAB SL PRN (08:30)
[2023-07-09] MEDS ORDERED: Ondansetron PF 4 MG/2 ML Vial IVP PRN (08:30)
[2023-07-09] MEDS ORDERED: Lactated Ringer's 1,000 ML IV SCH (08:30)
[2023-07-09] MEDS ORDERED: Famotidine/PF 20 mg/2ml Vial SLOW IVP SCH (09:00)
[2023-07-09] MEDS ORDERED: TETANUS, DIPHTHERIA TOX,ADULT (TDVAX) 0.5 ML VIAL IM ONE (09:00)
[2023-07-09 11:43] LABS: #Eosinphils 0.2 thou/uL (0.0-0.7); #Monocytes 0.5 thou/uL (0.11-0.59); #Neutrophils 3.6 thou/uL (1.40-6.50); %Basophils 0.2 % (0.0-1.0); %Eosinophils 3.5 % (0.0-10.0); %Monocytes 9.4 % (0.0-10.0); %Neutrophils 61.6 % (42.0-75.0); Hematocrit 42.3 % (42.0-52.0); Hemoglobin 13.2 g/dL (14.0-18.0); Mean Corpuscular HGB CONC 31.2 g/dL (32.0-36.0); Mean Corpuscular Hemoglobin 25.3 pg (27.0-31.0); Mean Platelet Volume 12.1 fL (7.4-10.4); Platelet Count 238 10x3/uL (130-400); RBC Distribution Width 14.9 % (11.5-14.5); Red Blood Cell (RBC) Count 5.22 mill/uL (4.70-6.10); White Blood Cell (WBC) Count 5.8 10x3/uL (4.8-10.8)
[2023-07-09 12:55] LABS: ALT (SGPT) 59 U/L (8-55); AST (SGOT) 40 U/L (5-34); Albumin 3.7 g/dL (3.5-5.0); Alkaline Phosphatase 94 U/L (40-110); BUN (Urea Nitrogen) 11 mg/dL (8.9-20.6); Bilirubin, Total 0.8 mg/dL (0.2-1.2); Calc. Creatinine Clearance 133 mL/min (70-130); Calcium 9.1 mg/dL (7.8-10.44); Carbon Dioxide 16 mmol/L (22-29); Chloride 113 mmol/L (98-107); Estimated GFR 122; Globulin 2.7 g/dL (2.4-3.5); Glucose 72 mg/dL (70-105); Potassium 4.4 mmol/L (3.5-5.1); Protein, Total 6.4 g/dL (6.0-8.3); Sodium 142 mmol/L (136-145)
[2023-07-09 21:45] LABS: Anion Gap 17 mmol/L (10-20)
[2023-07-09 22:25] VITALS: BP 117/72; TEMP 98.4
== END 2023-07-09 22:05 | disposition home or self-care (01) | DRG 389 ==
LOC: ERS 16:41 → SJJU 19:43
PROVIDERS: ADMIT Surgery; ATTEND Surgery
PROC: 0DH673Z Insertion of Infusion Device into Stomach, Via Natural or Artificial Opening (ICD-10-PCS; principal; 2023-07-08)
DX: K56.600 Partial intestinal obstruction, unspecified as to cause (principal); J98.11 Atelectasis; Z98.890 Other specified postprocedural states
CPT/HCPCS: 74018; 74177; 74250; 80053; 81001; 83690; 85025; 96374; 96375; J1885; J2270; J2405; J7050; J7120; S0028